=== PATIENT | female | born 1935 | race Caucasian/White ===

== ENCOUNTER 2016-03-03 07:58 | Day surgery (SDC) | payer MEDICARE, OTHER ==
[2016-03-03 08:40] VITALS: BMI 28.3
[2016-03-03] MEDS ORDERED: PROPOFOL 20 ML ONE ×3 (08:45)
[2016-03-03] MEDS ORDERED: LIDOCAINE HCL/PF 1% SDV 5ML VIAL ONE (08:45)
[2016-03-03 09:50] VITALS: TEMP 97.3
[2016-03-03 12:00] VITALS: BP 106/56; PULSE 63
--- NOTE | 2016-03-04 13:08 | PATH ---
Surgical Pathology Report Patient Name: MOUSTAPHA JOSÉ [facility]. Rec. #: [id number] /Age/Gender: 1935 (Age: 80) / F Account: [id number] Location: U-ENDOSCOPY Taken: 03/03/2016 Received: 03/03/2016 Reported: 03/04/2016 Physicians: Titi Martínez M.D. Specimen(s) Received A: POLYP SIGMOID B: POLYP SPLENIC FLEXURE C: POLYP RIGHT COLON D: BX EXTRENSIC COMPRESSION IN CECUM Clinical History History of polyps Colon polyp, melanosis coli, hemorrhoids Final Diagnosis A. COLON, SIGMOID, POLYP, POLYPECTOMY: CONSISTENT WITH INFLAMMATORY/INFLAMMATIRY FIBROUS-TYPE POLYP. NO DYSPLASIA/ADENOMA IDENTIFIED. B. COLON, SPLENIC FLEXURE, POLYP, POLYPECTOMY: TUBULAR ADENOMA. C. COLON, RIGHT, POLYP, POLYPECTOMY: TUBULAR ADENOMA. D. COLON, CECUM, EXTRINSIC COMPRESSION, BIOPSY: BENIGN COLONIC MUCOSA WITH FOCAL REACTIVE LYMPHOID AGGREGATE AND PROMINENT SUBMUCOSAL ADIPOSE TISSUE; MELANOSIS COLI. NO EVIDENCE OF ACTIVE INFLAMMATION, SIGINIFICANT ARCHITECTURAL DISTORTION, GRANULOMATA OR DYSPLASIA/ADENOMA OR CARCINOMA. Electronically Signed Srikanth Merritt M.D. Gross Description A. Received in formalin, labeled "polyp sigmoid" is a asher, irregular portion of soft tissue measuring 0.6 cm in greatest dimension. The specimen is submitted in toto in one cassette. B. Received in formalin, labeled "polyp splenic flexure" is a asher, irregular portion of soft tissue measuring 0.3 cm in greatest dimension. The specimen is submitted in toto in one cassette. C. Received in formalin, labeled "polyp right colon" are 2 asher, irregular portions of soft tissue averaging 0.2 cm in greatest dimension. The specimens are submitted in toto in one cassette. D. Received in formalin, labeled "biopsy extrinsic compression in cecum" is a asher, irregular portion of soft tissue measuring 0.3 cm in greatest dimension. The specimen is submitted in toto in one cassette. 03/03/201603/03/2016
== END 2016-03-03 11:15 | disposition home or self-care (01) ==
LOC: JASU-ENDO 07:58
PROVIDERS: ATTEND Internal Medicine Gastroenterology
PROC: 0DBH8ZX Excision of Cecum, Via Natural or Artificial Opening Endoscopic, Diagnostic (ICD-10-PCS; 2016-03-03)
PROC: 0DBE8ZX Excision of Large Intestine, Via Natural or Artificial Opening Endoscopic, Diagnostic (ICD-10-PCS; 2016-03-03)
PROC: 0DBK8ZX Excision of Ascending Colon, Via Natural or Artificial Opening Endoscopic, Diagnostic (ICD-10-PCS; 2016-03-03)
PROC: 0DBN8ZX Excision of Sigmoid Colon, Via Natural or Artificial Opening Endoscopic, Diagnostic (ICD-10-PCS; principal; 2016-03-03 09:00)
DX: Z12.11 Encounter for screening for malignant neoplasm of colon (principal); Z86.010 Personal history of colon polyps; K63.89 Other specified diseases of intestine; D12.5 Benign neoplasm of sigmoid colon; K63.5 Polyp of colon; D12.2 Benign neoplasm of ascending colon; K63.9 Disease of intestine, unspecified; K64.8 Other hemorrhoids
CPT/HCPCS: 88305-TC

== ENCOUNTER 2016-08-25 10:15 | Day surgery (SDC) | payer MEDICARE ==
[2016-08-21 14:05] VITALS: BMI 28.6
[2016-08-25] MEDS ORDERED: PROPOFOL 20 ML ONE ×2 (11:26)
[2016-08-25 12:13] VITALS: TEMP 98
[2016-08-25 13:20] VITALS: BP 122/61; PULSE 61
--- NOTE | 2016-08-26 12:54 | PATH ---
Surgical Pathology Report Patient Name: MOUSTAPHA JOSÉ [facility] Rec. #: [id number] /Age/Gender: 1935 (Age: 80) / F Account: [id number] Location: U-ENDOSCOPY Taken: 08/25/2016 Received: 08/25/2016 Reported: 08/26/2016 Physicians: Titi Martínez M.D. Specimen(s) Received A: BX STOMACH, GASTRIC POLYP B: BX DISTAL ESOPHAGUS Clinical History Anemia unspecified Gastric polyps, hiatal hernia erosion Final Diagnosis A. 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 NO ADENOMATOUS CHANGE IDENTIFIED. IMMUNOSTAIN FOR H. PYLORI IS NEGATIVE. B. DISTAL ESOPHAGUS, BIOPSY: SQUAMOUS EPITHELIUM WITH PAPILLOMATOSIS SUGGESTIVE OF REFLUX ESOPHAGITIS. NO INTESTINAL METAPLASIA IDENTIFIED (NO MCMAHAN'S IDENTIFIED). Electronically Signed Flavio Calloway M.D. Gross Description A. Received in formalin, labeled "biopsy stomach" is a asher, irregular portion of soft tissue measuring 0.2 cm. in greatest dimension. The specimen is submitted in toto in one cassette. B. Received in formalin, labeled "biopsy distal esophagus" is a asher, irregular portion of soft tissue measuring 0.5 cm. in greatest dimension. The specimen is submitted in toto in one cassette. /08/25/201608/25/2016
== END 2016-08-25 13:20 | disposition home or self-care (01) ==
LOC: JASU-ENDO 10:15
PROVIDERS: ATTEND Internal Medicine Gastroenterology
PROC: 0DB98ZX Excision of Duodenum, Via Natural or Artificial Opening Endoscopic, Diagnostic (ICD-10-PCS; principal; 2016-08-25 11:00)
DX: D64.9 Anemia, unspecified (principal); K31.7 Polyp of stomach and duodenum; K22.10 Ulcer of esophagus without bleeding; K44.9 Diaphragmatic hernia without obstruction or gangrene
CPT/HCPCS: 88305-TC; 88342-TC

== ENCOUNTER 2021-12-13 22:19 | Observation (INO) | payer OTHER ==
[2021-12-13 22:25] VITALS: BMI 27.4
[2021-12-13] MEDS ORDERED: SODIUM CHLORIDE 0.9% 500 ML INFUS.BAG IV ONE (23:20)
[2021-12-13] MEDS ORDERED: METOCLOPRAMIDE HCL INJECTION 10 MG/2 ML VIAL IVPB ONE (23:20)
[2021-12-13] MEDS ORDERED: ACETAMINOPHEN 1000 MG/100 ML BAG IVPB ONE (23:20)
[2021-12-13] MEDS ORDERED: ACETAMINOPHEN INJECTION 100 ML IVPB ONE (23:26)
[2021-12-13] MEDS ORDERED: METOCLOPRAMIDE HCL INJECTION 10 MG/2 ML VIAL ONE (23:26)
[2021-12-14 00:16] LABS: BASO % 0.6 % (0-2.0); EOS % 1.4 % (0-4.5); HEMATOCRIT 36.4 % (32.4-45.2); HEMOGLOBIN 12.8 GM/dL (10.7-15.3); LYMPH % 31.1 % (8-40); MCH 33.3 pg (25.7-33.7); MCHC 35.1 g/dl (32.0-36.0); MEAN CELL VOLUME 94.7 fl (80-96); MEAN PLT VOLUME 7.9 fl (7.5-11.1); MONO % 10.8 % (3.8-10.2); NEUT % 56.1 % (42.8-82.8); PLATELET COUNT 245 10^3/uL (134-434); RBC 3.85 M/mm3 (3.60-5.2); RDW 12.3 % (11.6-15.6); WHITE BLOOD COUNT 7.8 K/mm3 (4.0-10.0)
[2021-12-14 00:22] LABS: INR 1.02 (0.83-1.09); PROTHROMBIN TIME (PATIENT) 11.7 SEC (9.7-13.0)
[2021-12-14 00:25] LABS: ACTIVATED PTT 29.6 SECONDS (25.2-36.5)
[2021-12-14 00:36] LABS: BLOOD UREA NITROGEN 15.9 mg/dL (7-18); CALCIUM 9.6 mg/dL (8.5-10.1)
[2021-12-14 00:39] LABS: CREATININE 0.9 mg/dL (0.55-1.3)
[2021-12-14 00:41] LABS: BILIRUBIN,TOTAL 0.4 mg/dL (0.2-1); TOT PROT 7.5 g/dl (6.4-8.2)
[2021-12-14] MEDS ORDERED: amLODIPine BESYLATE 10 MG TABLET (FP) PO ONE (04:40)
[2021-12-14] MEDS ORDERED: ACETAMINOPHEN 325 MG TABLET (FP) PO PRN (05:43)
[2021-12-14] MEDS ORDERED: amLODIPine BESYLATE 10 MG TABLET (FP) ONE (06:15)
[2021-12-14] MEDS ORDERED: LOSARTAN POTASSIUM 50 MG TABLET ONE (06:15)
[2021-12-14] MEDS ORDERED: ISOSORBIDE MONONITRATE 60 MG TAB.SR.24H (FP) PO ONE (06:17)
[2021-12-14] MEDS ORDERED: LEVOTHYROXINE NA 50 MCG TABLET (FP) ONE ×2 (06:18→08:50)
[2021-12-14] MEDS ORDERED: LEVOTHYROXINE NA 50 MCG TABLET (FP) PO SCH (07:00)
[2021-12-14] MEDS ORDERED: LOSARTAN POTASSIUM 50 MG TABLET PO SCH (07:00)
[2021-12-14] MEDS ORDERED: HYDROCHLOROTHIAZIDE 12.5 MG CAPSULE (FP) PO SCH (07:00)
[2021-12-14] MEDS ORDERED: ISOSORBIDE MONONITRATE 60 MG TAB.SR.24H (FP) PO SCH (07:00)
[2021-12-14] MEDS ORDERED: ENOXAPARIN NA (PORCINE) 40 MG/0.4 ML DISP.SYRIN SQ ONE (08:50)
[2021-12-14] MEDS ORDERED: HYDROCHLOROTHIAZIDE 25 MG TABLET (FP) ONE (08:50)
[2021-12-14 09:44] LABS: BASO % 0.4 % (0-2.0); EOS % 1.1 % (0-4.5); HEMOGLOBIN 12.7 GM/dL (10.7-15.3); LYMPH % 31.9 % (8-40); MCH 32.1 pg (25.7-33.7); MCHC 34.2 g/dl (32.0-36.0); MEAN CELL VOLUME 93.9 fl (80-96); MEAN PLT VOLUME 8.1 fl (7.5-11.1); MONO % 8.7 % (3.8-10.2); NEUT % 57.9 % (42.8-82.8); PLATELET COUNT 263 10^3/uL (134-434); RBC 3.95 M/mm3 (3.60-5.2); RDW 12.1 % (11.6-15.6); WHITE BLOOD COUNT 7.6 K/mm3 (4.0-10.0)
[2021-12-14] MEDS: INSULIN SLIDING SCALE (NOVOLOG) 1 VIAL SQ SCH ×2 (09:52→13:15)
[2021-12-14 09:55] LABS: CALCIUM 9.2 mg/dL (8.5-10.1)
[2021-12-14 09:57] LABS: MAGNESIUM 1.9 mg/dL (1.8-2.4)
[2021-12-14 09:58] LABS: ALBUMIN 3.8 g/dl (3.4-5.0)
[2021-12-14 09:59] LABS: BLOOD UREA NITROGEN 10.5 mg/dL (7-18); CREATININE 0.7 mg/dL (0.55-1.3)
[2021-12-14] MEDS ORDERED: SOLIFENACIN SUCCINATE 5 MG TAB PO SCH (10:00)
[2021-12-14] MEDS ORDERED: ENOXAPARIN NA (PORCINE) 40 MG/0.4 ML DISP.SYRIN SQ SCH (10:00)
[2021-12-14 10:01] LABS: PHOSPHOROUS 2.9 mg/dL (2.5-4.9); TOT PROT 7.1 g/dl (6.4-8.2)
[2021-12-14 10:03] LABS: BILIRUBIN,TOTAL 0.6 mg/dL (0.2-1)
[2021-12-14 17:56] VITALS: BP 149/82; PULSE 90; RESP 18; TEMP 98.4
[2021-12-14] MEDS ORDERED: ATORVASTATIN CA 10 MG TABLET (FP) PO SCH (22:00)
[2021-12-14] MEDS ORDERED: ATENOLOL 50 MG TABLET (FP) PO SCH (22:00)
== END 2021-12-14 18:56 | disposition home or self-care (01) ==
LOC: JER 22:19 → JERBED 12-14 03:13 → OBSVTOIN 12-14 05:22 → INTOOBSV 12-14 05:22
PROVIDERS: ADMIT Internal Medicine; ATTEND Nurse Practitioner Family
PROC: 3E033NZ Introduction of Analgesics, Hypnotics, Sedatives into Peripheral Vein, Percutaneous Approach (ICD-10-PCS; principal; 2021-12-14)
PROC: 3E023GC Introduction of Other Therapeutic Substance into Muscle, Percutaneous Approach (ICD-10-PCS; 2021-12-14)
PROC: 3E033GC Introduction of Other Therapeutic Substance into Peripheral Vein, Percutaneous Approach (ICD-10-PCS; 2021-12-14)
PROC: 3E0337Z Introduction of Electrolytic and Water Balance Substance into Peripheral Vein, Percutaneous Approach (ICD-10-PCS; 2021-12-14)
DX: I11.0 Hypertensive heart disease with heart failure (principal); I50.9 Heart failure, unspecified; K29.70 Gastritis, unspecified, without bleeding; R03.0 Elevated blood-pressure reading, without diagnosis of hypertension; E11.9 Type 2 diabetes mellitus without complications; E03.9 Hypothyroidism, unspecified; D64.9 Anemia, unspecified; K21.9 Gastro-esophageal reflux disease without esophagitis; E78.00 Pure hypercholesterolemia, unspecified; N20.0 Calculus of kidney; K25.9 Gastric ulcer, unspecified as acute or chronic, without hemorrhage or perforation; Z88.8 Allergy status to other drugs, medicaments and biological substances; Z88.0 Allergy status to penicillin
CPT/HCPCS: 0241U-QW; 36415; 70450-TC; 71045-TC-FY; 80053; 80061; 82550; 82962; 83735; 84100; 84439; 84443; 84484; 85025; 85610; 85730; 93005; 93010; 96361; 96372; 96374; 96375; 99285-25; G0378

== ENCOUNTER 2022-01-03 09:38 | Emergency (ER) | payer OTHER ==
[2022-01-03 09:48] VITALS: BMI 26.3
[2022-01-03] MEDS ORDERED: ACETAMINOPHEN 500 MG TABLET (FP) PO ONE (10:36)
[2022-01-03] MEDS ORDERED: LIDOCAINE 5% TOPICAL PATCH TP ONE (10:36)
[2022-01-03] MEDS ORDERED: LIDOCAINE 5% TOPICAL PATCH ONE (11:18)
[2022-01-03] MEDS ORDERED: ACETAMINOPHEN 325 MG TABLET (FP) ONE ×2 (11:18→11:21)
[2022-01-03 12:04] VITALS: BP 153/68; PULSE 94; RESP 16; TEMP 98.3
[2022-01-03] MEDS ORDERED: LIDOCAINE PATCH REMOVAL MC ONE (22:00)
== END 2022-01-03 13:11 | disposition home or self-care (01) ==
LOC: JER 09:38
DX: M25.552 Pain in left hip (principal)
CPT/HCPCS: 72100-TC-FY; 73502-TC-LT-FY; 99284-25

== ENCOUNTER 2022-01-31 04:11 | Day surgery (SDC) | payer OTHER ==
[2022-01-29 16:18] VITALS: BMI 26.7
[2022-01-31] MEDS ORDERED: LIDOCAINE HCL/PF 1% SDV 5ML VIAL ONE (07:24)
[2022-01-31] MEDS ORDERED: TRIAMCINOLONE ACET 40MG/1ML VIAL ONE (07:24)
[2022-01-31] MEDS ORDERED: BUPIVACAINE HCL/PF 0.5% (5MG/ML) 10 ML VIAL ONE (07:24)
[2022-01-31] MEDS ORDERED: IOHEXOL 180 MG/1 ML ML IJ ONE (09:34)
[2022-01-31] MEDS ORDERED: TRIAMCINOLONE ACET 40MG/1ML VIAL IM ONE (09:34)
[2022-01-31] MEDS ORDERED: LIDOCAINE HCL 1%, 10 MG/ML (50 mL VIAL) INF ONE (09:34)
[2022-01-31] MEDS ORDERED: BUPIVACAINE HCL/PF 0.5% (5MG/ML) 10 ML VIAL IJ ONE (09:35)
[2022-01-31 10:06] VITALS: RESP 18; TEMP 98.7
[2022-01-31 10:59] VITALS: BP 130/88; PULSE 80
== END 2022-01-31 10:30 | disposition home or self-care (01) ==
LOC: JASU-SURG 04:11
PROVIDERS: ATTEND Pain Medicine Pain Medicine
PROC: 3E0U3BZ Introduction of Anesthetic Agent into Joints, Percutaneous Approach (ICD-10-PCS; 2022-01-31)
PROC: 3E0U33Z Introduction of Anti-inflammatory into Joints, Percutaneous Approach (ICD-10-PCS; principal; 2022-01-31 08:30)
DX: M53.3 Sacrococcygeal disorders, not elsewhere classified (principal)
CPT/HCPCS: 76000-TC-FY

== ENCOUNTER 2022-07-25 04:14 | Day surgery (SDC) | payer OTHER ==
[2022-07-23 11:55] VITALS: BMI 26.7
[2022-07-25 10:15] VITALS: RESP 18
[2022-07-25] MEDS ORDERED: LIDOCAINE 1% P/F 10 MG/ML VIAL INF ONE ×2 (12:29→12:45)
[2022-07-25] MEDS ORDERED: DEXAMETHASONE SOD PHOSPHATE 10 MG/1 ML VIAL IVPUSH ONE ×3 (12:29→12:52)
[2022-07-25] MEDS ORDERED: IOHEXOL 180 MG/1 ML ML IJ ONE ×2 (12:30→12:46)
[2022-07-25] MEDS ORDERED: BUPIVACAINE HCL/PF 0.5% (5MG/ML) 10 ML VIAL NR ONE (12:45)
[2022-07-25 14:44] VITALS: BP 152/73; PULSE 75; TEMP 97.9
== END 2022-07-25 13:45 | disposition home or self-care (01) ==
LOC: JASU-SURG 04:14
PROVIDERS: ATTEND Pain Medicine Pain Medicine
PROC: 3E0T3BZ Introduction of Anesthetic Agent into Peripheral Nerves and Plexi, Percutaneous Approach (ICD-10-PCS; principal; 2022-07-25 11:45)
DX: M47.812 Spondylosis without myelopathy or radiculopathy, cervical region (principal)
CPT/HCPCS: 76000-TC-FY; J1100